=== PATIENT | male | born 1960 | race African-American/Black ===

== ENCOUNTER 2016-10-15 10:03 | Emergency (ER) ==
[2016-10-15] MEDS ORDERED: NS 1,000 ML IV ONE (10:43)
--- NOTE | 2016-10-15 10:46 | PROVIDER DOCUMENTATION ---
HPI-Head Injury - General Chief Complaint: Head Injury Stated Complaint: syncope/head abrasions Time Seen by Provider: 10/15/16 10:26 Source: patient, family Allergies/Adverse Reactions: Patient Allergies Allergy/AdvReac Type Severity Reaction Status Date / Time No Known Allergies Allergy Verified 06/03/15 09:18 Home Medications: Hydrocodone/APAP 7.5 mg/325 mg [[place]-7.5] 1 tab PO TID 05/29/15 Insulin Glargine [Lantus] 23 units SQ DAILY 05/29/15 LISINOpril [Prinivil] 20 mg PO DAILY 05/29/15 Baclofen 10 mg PO TID 06/03/15 Insulin Aspart [Novolog] 13 unit SQ TID 06/03/15 Amlodipine [Norvasc] 10 mg PO DAILY 10/15/16 Meloxicam [Mobic] 15 mg PO DAILY 10/15/16 - History of Present Illness-Head Injury Nature of Presenting Problem: Pt has been on alcohol binge for two months , tried to intrervene in dog fight and fell hitting head on concrete drive. Head Injury Location: reports: frontal Quality of Pain: reports: aching Severity: reports: mild Onset/Duration: reports: just prior to arrival Timing: reports: still present Method of Injury: reports: fell Any recent trauma/injury?: reports: to head Loss of Consciousness: no loss of consciousness Modifying Factors: improves with: other (intoxicated) Injury Associated Symptoms: reports: headaches Locality of Occurance: Home Similar Symptoms Previously?: No Recently seen or treated by another doctor?: No Review of Systems - Adult - REVIEW OF SYSTEMS - ADULT Constitutional: reports: no symptoms reported Eyes: reports: no symptoms reported Ears, Nose, Mouth & Throat: reports: no symptoms reported, loose teeth, mouth/ dental pain Cardiovascular: reports: no symptoms reported Gastrointestinal: reports: no symptoms reported Genitourinary: reports: no symptoms reported Neurological: reports: see HPI, loss of balance Past History - Adult - PAST MEDICAL HISTORY-ADULT Major Childhood Illnesses: reports: denies history Cardiovascular: reports: HTN Respiratory: reports: denies history Gastrointestinal: reports: denies history Obstetrical/Gynecological: reports: denies history Genitourinary: reports: denies history Musculoskeletal: reports: denies history Neurological: reports: stroke deficits, other (aneurysm ) Endocrine/Immune: reports: Diabetes, thyroid disorder Other Conditions: reports: denies history - PRIOR SURGERIES/PROCEDURES Surgical/Procedure History: reports: none - IMMUNIZATION STATUS Childhood Immunizations: See Nurse Assessment Flu Vaccine: See Nurse Assessment - SOCIAL HISTORY Alcohol Use Frequency: every day Living Situation: family Physical Exam- Neurological - Physical Exam-Neuro Initial Vital Signs Reviewed: Yes General Appearance: lethargic Eye Exam: bilateral eye: PERRL HENMT: dental decay, frontal tenderness Head Injury: active bleeding, swelling, tenderness Neck: non-tender, full range of motion Respiratory: normal breath sounds Cardiovascular: regular rate, rhythm Abdominal Exam: non tender, soft, no organomegaly 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 negative: normal speech Motor/Sensory: weak motor strength LUE, weak motor strength LLE Neurologic: abnormal gait, facial droop Integumentary: normal color - Glascow Coma Scale Best Eye Response: (4) open spontaneously Best Verbal Response: (5) oriented Best Motor Response: (6) obeys commands Total Glascow Score: 15 Progress - PLAN OF CARE/RESULTS Progress/Plan/Lab Results: Laboratory Tests 10/15/16 10/15/16 10/15/16 10:53 10:53 10:53 WBC 7.56 RBC 5.26 Hgb 15.9 Hct 46.8 MCV 89.0 MCH 30.2 MCHC 34.0 RDW Std Deviation 15.0 H Plt Count 267 MPV 11.4 H Immature Gran % (Auto) 0.0 Neut % (Auto) 43.5 Lymph % (Auto) 49.3 [place] % (Auto) 5.0 Eos % (Auto) 0.9 Baso % (Auto) 1.3 H Immature Gran # (Auto) 0.00 Neut # (Auto) 3.28 Lymph # (Auto) 3.73 H [place] # (Auto) 0.38 Eos # (Auto) 0.07 Baso # (Auto) 0.10 Sodium 141 Potassium 3.6 Chloride 98 Carbon Dioxide 28 Anion Gap 15 BUN 6 L Creatinine 0.8 Estimated GFR/1.73 m2 > 60 BUN/Creatinine Ratio 8 Glucose 216 H Calculated Osmolality 285 Calcium 8.5 L Total Bilirubin 0.34 AST 27 ALT 18 Alkaline Phosphatase 112 Total Protein 7.5 Albumin 4.1 Globulin 3.4 Albumin/Globulin Ratio 1.2 Plasma/Serum Ethyl Alc 277 H Orders Category Date Time Status HEAD/C-SPINE W/O CONTRAST [CT] Stat Exams 10/15/16 10:39 Draft ALCOHOL BLOOD Stat Lab 10/15/16 10:53 Completed CBC WITH ELECTRONIC DIFF [HEME] Stat Lab 10/15/16 10:53 Completed COMPREHENSIVE METABOLIC PANEL [CHEM] Stat Lab 10/15/16 10:53 Completed 0.9% Sodium Chloride Inj [Ns] 1,000 ml Med 10/15/16 10:43 Discontinued IV 999 mls/hr Vital Signs Temp Pulse Resp BP Pulse Ox 10/15/16 10:24 97.4 F L 82 18 147/79 100 No Known Allergies Allergy (Verified 06/03/15 09:18) Hydrocodone/APAP 7.5 mg/325 mg [[place]-7.5] 1 tab PO TID 05/29/15 Insulin Glargine [Lantus] 23 units SQ DAILY 05/29/15 LISINOpril [Prinivil] 20 mg PO DAILY 05/29/15 Baclofen 10 mg PO TID 06/03/15 Insulin Aspart [Novolog] 13 unit SQ TID 06/03/15 Amlodipine [Norvasc] 10 mg PO DAILY 10/15/16 Meloxicam [Mobic] 15 mg PO DAILY 10/15/16 Laboratory 10/15/16 10/15/16 10/15/16 10:53 10:53 10:53 WBC 7.56 RBC 5.26 Hgb 15.9 Hct 46.8 MCV 89.0 MCH 30.2 MCHC 34.0 RDW Std Deviation 15.0 H Plt Count 267 MPV 11.4 H Immature Gran % (Auto) 0.0 Neut % (Auto) 43.5 Lymph % (Auto) 49.3 [place] % (Auto) 5.0 Eos % (Auto) 0.9 Baso % (Auto) 1.3 H Immature Gran # (Auto) 0.00 Neut # (Auto) 3.28 Lymph # (Auto) 3.73 H [place] # (Auto) 0.38 Eos # (Auto) 0.07 Baso # (Auto) 0.10 Sodium 141 Potassium 3.6 Chloride 98 Carbon Dioxide 28 Anion Gap 15 BUN 6 L Creatinine 0.8 Estimated GFR/1.73 m2 > 60 BUN/Creatinine Ratio 8 Glucose 216 H Calculated Osmolality 285 Calcium 8.5 L Total Bilirubin 0.34 AST 27 ALT 18 Alkaline Phosphatase 112 Total Protein 7.5 Albumin 4.1 Globulin 3.4 Albumin/Globulin Ratio 1.2 Plasma/Serum Ethyl Alc 277 H - CT/MRI 1 CT Study: Cervical Spine, Head (No acute disease, chronic changes only) Departure - Departure Time of Disposition Order: 12:27 DIAGNOSIS: Fall Qualifiers: Encounter type: initial encounter Qualified Code(s): W19.XXXA - Unspecified fall, initial encounter Contusion Qualifiers: Contusion area: head Contusion of head detail: scalp Disposition: HOME 01 Certified Medical Emergency: Emergent Condition: Fair
[2016-10-15 11:10] LABS: MANUAL DIFF NEEDED? NO
[2016-10-15 11:13] LABS: BASO% 1.3 % (0.0-0.8); EOS# 0.07 X1000 (0.0-0.7); EOS% 0.9 % (0.0-10.0); HEMATOCRIT 46.8 % (42.0-52.0); HEMOGLOBIN 15.9 g/dL (14.0-18.0); LYMPH# 3.73 X1000 (1.2-3.4); LYMPH% 49.3 % (20.5-51.1); MCH 30.2 PG (27-31); MONO# 0.38 X1000 (0.11-0.59); MPV 11.4 FL (7.4-10.4); NEUT% 43.5 % (42.2-75.2); PLT 267 X1000 (130-400); RBC 5.26 XMIL (4.7-6.1)
[2016-10-15 11:26] LABS: AGAP 15; ALBUMIN 4.1 g/dL (3.5-5.0); ALKALINE PHOSPHATASE 112 U/L (32-122); BUN 6 mg/dL (8-22); CALCIUM 8.5 mg/dL (8.8-10.2); CHLORIDE 98 mmol/L (98-107); COSMO 285; GOT 27 U/L (10-34); GPT 18 U/L (10-44); POTASSIUM 3.6 mmol/L (3.5-5.1); SODIUM 141 mmol/L (136-145); TCO2 28 mmol/L (25-35); TOTAL BILIRUBIN 0.34 mg/dL (0.20-1.00); TOTAL PROTEIN 7.5 g/dL (6.3-8.3)
--- NOTE | 2016-10-15 12:10 | Diag Imaging Result Document ---
PROCEDURE NAME: HEAD/C-SPINE W/O CONTRAST - 10/15/[address]: COMPARISON: None. FINDINGS: There is some mild periventricular white matter hypodensity at the right frontal and parietal lobes compatible with old microvascular disease. There is some mild multifocal scalp soft tissue swelling. The skull is intact. The sinuses are clear. IMPRESSION: Chronic-appearing changes of the right cerebral hemisphere. No acute intracranial abnormality. CT CERVICAL SPINE: COMPARISON: None. FINDINGS: Alignment is anatomic. Vertebral body heights and intervertebral disk spaces are preserved. No fracture or subluxation. There are heavy anterior degenerative osteophytes at multiple levels, all the levels from C3-C7. Soft tissues are clear. IMPRESSION: Cervical spondylosis. No acute disease.
[2016-10-15 12:32] VITALS: BP 152/89
== END 2016-10-15 12:34 | disposition home or self-care (01) ==
LOC: EDBD → EDSEX → EDUNIT# → ED 10:03
DX: S00.03XA Contusion of scalp, initial encounter (principal); S09.90XA Unspecified injury of head, initial encounter; R51 Headache; I10 Essential (primary) hypertension; R26.81 Unsteadiness on feet; R47.9 Unspecified speech disturbances; R29.810 Facial weakness; R20.9 Unspecified disturbances of skin sensation; Z79.899 Other long term (current) drug therapy; F10.129 Alcohol abuse with intoxication, unspecified; Z86.79 Personal history of other diseases of the circulatory system; E11.9 Type 2 diabetes mellitus without complications; K08.89 Other specified disorders of teeth and supporting structures; R53.83 Other fatigue; E07.9 Disorder of thyroid, unspecified; W19.XXXA Unspecified fall, initial encounter; Z79.1 Long term (current) use of non-steroidal anti-inflammatories (NSAID); Z79.4 Long term (current) use of insulin
CPT/HCPCS: 70450; 72125; 80053; 85025; G0480